=== PATIENT | female | born 1970 | race Caucasian/White ===

== ENCOUNTER 2017-10-05 15:33 | Observation (INO) | payer SELFPAY ==
[2017-10-05] MEDS ORDERED: ASPIRIN 81 MG CHEWABLE TAB PO ONE (15:45)
[2017-10-05] MEDS ORDERED: NS 500 ML IV ONE (15:45)
--- NOTE | 2017-10-05 15:48 | CPEKG ---
Heart Rate: 70 RR Interval: 857 P-R Interval: 148 QRSD Interval: 82 QT Interval: 392 QTC Interval: 423 P Campbell: 77 QRS Campbell: 77 T Wave Campbell: 63 EKG Severity - BORDERLINE ECG - EKG Impression: SINUS RHYTHM EKG Impression: PROBABLE LEFT ATRIAL ABNORMALITY Electronically Signed By: Manjit Downs 05-Oct-2017 22:59:18
[2017-10-05 15:58] LABS: % IMMATURE GRANULYOCYTES 0.1 % (0.0-1.1); ABSOLUTE IMMATURE GRANULOCYTES 0.01 10^3/uL (0.00-0.10); ADD DIFF? NO; ADD MORPH? NO; ADD SCAN? NO; ATYPICAL LYMPHOCYTE FLAG 10 (0-99); FRAGMENT RBC FLAG 0 (0-99); HEMATOCRIT 42.5 % (38.0-47.0); HEMOGLOBIN 14.7 g/dL (12.6-16.3); LEFT SHIFT FLG 0 (0-99); LIPEMIA HEMOLYSIS FLAG 90 (0-99); MEAN CELL HEMOGLOBIN 32.9 pg (27.9-34.1); MEAN CELL HEMOGLOBIN CONCENTR. 34.6 g/dL (32.4-36.7); MEAN CELL VOLUME 95.1 fL (81.5-99.8); MEAN PLATELET VOLUME 9.8 fL (8.7-11.7); PLATELET CLUMPS FLAG 10 (0-99); PLATELET COUNT 266 10^3/uL (150-400); RED BLOOD CELL COUNT 4.47 10^6/uL (4.18-5.33); RED CELL DISTRIBUTION WIDTH 12.3 % (11.5-15.2)
[2017-10-05 16:10] LABS: ANION GAP 11 mEq/L (8-16); CALCIUM 9.1 mg/dL (8.5-10.4); CARBON DIOXIDE 22 mEq/l (22-31); CHLORIDE 107 mEq/L (97-110); CREATININE 0.7 mg/dL (0.6-1.0); GLOMERULAR FILTRATION RATE > 60; GLUCOSE 91 mg/dL (70-100); POTASSIUM 4.2 mEq/L (3.5-5.2); SODIUM 140 mEq/L (134-144)
[2017-10-05 16:15] LABS: INR 0.93 (0.83-1.16); PROTIME(PATIENT) 12.7 SEC (12.0-15.0)
[2017-10-05 16:16] LABS: APTT 26.7 SEC (23.0-38.0)
[2017-10-05 16:22] LABS: CREATINE KINASE-MB FRACTION 0.38 ng/mL (0.00-3.19); TROPONIN I < 0.012 ng/mL (0.000-0.034)
--- NOTE | 2017-10-05 16:44 | EDPHY ---
H & P Time Seen by Provider: 10/05/17 15:44 HPI/ROS: HPI Chest pain, shortness of breath. 47-year-old female by private vehicle. She is here with a friend. She reports she recently moved to this area [facility] travel from [place] initially than [facility] for a few weeks and now here. She reports that last Tuesday she was hiking. While hiking she states that she developed shortness of breath and which she describes as chest pressure and tightness. She reports that since this today she has had shortness of breath and chest discomfort with any exertion and prolonged talking as well. She was seen at her clinic yesterday evening and told that she had an abnormal chest x-ray and to go to the emergency department. She reports she has had some of the symptoms this morning with walking around and getting an out of a car. She denies any significant past medical history. No history of hypertension, diabetes, hyperlipidemia. She does not smoke. Denies any family history of coronary artery disease. Has not had acute mountain sickness in the past was visits to this area. ROS: Constitutional: No fever, no chills. No weakness. Eyes: No discharge. No changes in vision. ENT: No sore throat. No nasal congestion or rhinorrhea. Respiratory: No cough. As above. Cardiac: As above, no palpitations. Gastrointestinal: No abdominal pain, no vomiting, no diarrhea. Genitourinary: No hematuria. No dysuria or increased frequency with urination. Musculoskeletal: No back pain. No neck pain. No myalgias or arthralgias. Skin: No rashes. Neurological: No headache. No focal weakness or altered sensation. Past medical history: Hypothyroid, takes Synthroid. Social history: Nonsmoker. Denies alcohol. Here with herself. Physical Exam: General Appearance: Alert, no distress. This patient is responding to questions appropriately and in full sentences. This patient appears well- hydrated and well-nourished. Eyes: Pupils equal and round no pallor or injection. No lid edema, erythema or injection. ENT, Mouth: Mucous membranes are moist. The pharyngeal tissues are unremarkable. No edema or swelling. No asymmetry suggestive of abscess. No erythema or exudates. Respiratory: There are no retractions, lungs are clear to auscultation with good air movement bilaterally. Cardiovascular: Regular rate and rhythm. No murmur. Gastrointestinal: Abdomen is soft and nontender, no masses, bowel sounds normal. No focal tenderness at McBurney's point. No Hand sign. Neurological: Motor sensory function is grossly intact. Cranial nerves are normal. Gait is normal. Skin: Warm and dry, no rashes. Musculoskeletal: Neck is supple and nontender. Extremities are symmetrical. All joints range without pain or impingement. Psychiatric: No agitation. No depression. Database: EKG: EKG time is 3:46 p.m.; EKG shows a narrow complex normal sinus rhythm with a ventricular rate of 70. The SC, QRS, QT intervals are within normal limits. There are no ST-T wave changes indicative of ischemic or injury pattern. No evidence of right heart strain. Interpreted by me. Imaging: Chest x-ray AP portable; the cardiac mediastinal silhouette is unremarkable. No evidence of infiltrate or pneumothorax. No acute cardiopulmonary disease process noted. Interpreted by me. Procedures: Emergency department course: IV placed. Vital signs reviewed and are normal. She was given 324 mg of chewed aspirin. EKG obtained and reviewed by myself. 4:45 p.m., patient re-evaluated. Resting comfortably at this time. She denies any chest pain or dyspnea. Results of her emergency department workup discussed with her. I advised admission for echocardiogram and serial troponins. She endorses. 5:10 p.m., spoke with hospitalist, Dr. Leland Aguilar, case discussed in detail. He accepts this patient for admission to telemetry observation. Differential Diagnosis: The differential diagnosis on this patient includes but is not limited to acute coronary syndrome, acute mountain sickness, congestive heart failure, pulmonary embolism, pneumonia. This represents a partial list of diagnoses considered. These considerations are based on history, physical exam, past history, reassessment and diagnostic testing. Smoking Status: Never smoked Constitutional: Initial Vital Signs Temperature (C) 37.1 C 10/05/17 15:37 Heart Rate 74 10/05/17 15:37 Respiratory Rate 16 10/05/17 15:37 Blood Pressure 119/81 H 10/05/17 15:37 O2 Sat (%) 97 10/05/17 15:37 O2 Delivery Mode Room Air Allergies/Adverse Reactions: No Known Allergies Allergy (Unverified 10/05/17 15:36) Home Medications: Medication Instructions Recorded Synthroid 10/05/17 Medical Decision Making - Diagnostics Imaging Results: Imaging Impressions Chest X-Ray 10/05/17 15:46 Impression: No acute abnormality. If there is further clinical concern, PA and lateral upright views in the department could be considered. - Data Points Laboratory Results: Laboratory Results 10/05/17 15:46 10/05/17 15:46 10/05/17 10/05/17 10/05/17 15:46 15:46 15:46 WBC 6.84 10^3/uL 10^3/uL (3.80-9.50) RBC 4.47 10^6/uL 10^6/uL (4.18-5.33) Hgb 14.7 g/dL g/dL (12.6-16.3) Hct 42.5 % % (38.0-47.0) MCV 95.1 fL fL (81.5-99.8) MCH 32.9 pg pg (27.9-34.1) MCHC 34.6 g/dL g/dL (32.4-36.7) RDW 12.3 % % (11.5-15.2) Plt Count 266 10^3/uL 10^3/uL (150-400) MPV 9.8 fL fL (8.7-11.7) Neut % (Auto) 50.7 % % (39.3-74.2) Lymph % (Auto) 37.9 % % (15.0-45.0) [place] % (Auto) 6.9 % % (4.5-13.0) Eos % (Auto) 3.1 % % (0.6-7.6) Baso % (Auto) 1.3 % % (0.3-1.7) Nucleat RBC Rel Count 0.0 % % (0.0-0.2) Absolute Neuts (auto) 3.47 10^3/uL 10^3/uL (1.70-6.50) Absolute Lymphs (auto) 2.59 10^3/uL 10^3/uL (1.00-3.00) Absolute Monos (auto) 0.47 10^3/uL 10^3/uL (0.30-0.80) Absolute Eos (auto) 0.21 10^3/uL 10^3/uL (0.03-0.40) Absolute Basos (auto) 0.09 10^3/uL 10^3/uL (0.02-0.10) Absolute Nucleated RBC 0.00 10^3/uL 10^3/uL (0-0.01) Immature Gran % 0.1 % % (0.0-1.1) Immature Gran # 0.01 10^3/uL 10^3/uL (0.00-0.10) PT 12.7 SEC SEC (12.0-15.0) INR 0.93 (0.83-1.16) APTT 26.7 SEC SEC (23.0-38.0) D-Dimer < 0.27 ug/mLFEU ug/mLFEU (0.00-0.50) Sodium 140 mEq/L mEq/L (134-144) Potassium 4.2 mEq/L mEq/L (3.5-5.2) Chloride 107 mEq/L mEq/L (97-110) Carbon Dioxide 22 mEq/l mEq/l (22-31) Anion Gap 11 mEq/L mEq/L (8-16) BUN 13 mg/dL mg/dL (7-23) Creatinine 0.7 mg/dL mg/dL (0.6-1.0) Estimated GFR > 60 Glucose 91 mg/dL mg/dL (70-100) Calcium 9.1 mg/dL mg/dL (8.5-10.4) Creatine Kinase 47 IU/L IU/L (0-156) CK-MB (CK-2) Fraction 0.38 ng/mL ng/mL (0.00-3.19) Troponin I < 0.012 ng/mL ng/mL (0.000-0.034) NT-Pro-B Natriuret Pep 43 pg/mL pg/mL (0-125) Medications Given: Discontinued Medications Aspirin (Aspirin) 324 mg PO EDNOW ONE Stop: 10/05/17 15:46 Last Admin: 10/05/17 16:08 Dose: 324 mg Sodium Chloride (Ns) 500 mls @ 1,000 mls/hr IV EDNOW ONE PRN Reason: Protocol Stop: 10/05/17 16:14 Last Admin: 10/05/17 16:08 Dose: 500 mls Departure - Departure Disposition: [facility] Inpatient Acute Clinical Impression: Chest pain, Dyspnea Referrals: NONE *PRIMARY CARE P,. [Primary Care Provider] - As per Instructions
[2017-10-05] MEDS ORDERED: ONDANSETRON 4 MG/2 ML VIAL IVP PRN (20:31)
[2017-10-05] MEDS ORDERED: ACETAMINOPHEN 325 MG TAB PO PRN (20:31)
[2017-10-05] MEDS ORDERED: ONDANSETRON DISINTEGRATING 4 MG TAB PO PRN (20:31)
[2017-10-05] MEDS ORDERED: IOPAMIDOL (ISOVUE 370) 100 ML BTL IV ONE (20:37)
--- NOTE | 2017-10-05 21:28 | GHP ---
[f rep st] HISTORY AND PHYSICAL DATE OF ADMISSION: 10/05/2017 HISTORY OF PRESENT ILLNESS: The patient is a pleasant 47-year-old female with a minimal past medical history, who presents with a couple of weeks of breathlessness. It sounds like she has had breathle ssness and chest pressure with exertion. She has not had any URI symptoms. She has had some develop ment of pleuritic pain as well. She has traveled extensively throughout the country over the last co uple of months from [place] to [place] to [place] to [place], back to [place] to [place] to [facility], and back to [place]. She has spent time in [place] before. She is fit and active. She said lei segura has had a hard time working out, and she gets winded just walking up the stairs. This is very unus ual for her. She had a hike the other day that she was remarkably winded on. She traveled to [facility] when living in [place] relatively frequently without difficulty. She is staying here in [place], [place]. She does not smoke cigarettes. She does not use IV drugs. She denies fever, c hills, cough, or sputum. Her father had heart disease, but she cannot be more specific. She does not have exertional anginal symptoms, nor does she have heart failure symptoms. She does have a remote history of SVT. She has not had palpitations. REVIEW OF SYSTEMS: A complete 10-point review of systems was conducted and negative except as noted in the HPI. PAST MEDICAL HISTORY: SVT and hypothyroidism. ALLERGIES: No known drug allergies. HOME MEDICATIONS: Fish oil and levothyroxine. SOCIAL HISTORY: She has relocated from [place] to [place]. Originally from [place]. No tobacco . Minimal alcohol. FAMILY HISTORY: Heart disease in her father. PHYSICAL EXAMINATION: PRESENTING VITALS: Temp 37.1, blood pressure 119/81, pulse 74, breathing 16 t imes a minute, 97% on room air. GENERAL: No acute distress. HEENT: Sclerae anicteric. Oropharynx clear. Mucous membranes moist. NECK: Supple, without lymphadenopathy or JVD. LUNGS: Clear to au scultation bilaterally. HEART: S1, S2, without murmurs. ABDOMEN: Soft, nontender, nondistended. LOWER EXTREMITIES: Without edema. Calves are nontender. SKIN: Without rash. NEUROLOGIC: Exam is nonfocal. LABORATORY DATA: White count 6.8, hematocrit 42, platelets 266,000. Coags normal. D-dimer less bar n 0.27. Chem-7 normal. Troponin less than 0.012. BNP 43. TSH 3.9. Chest x-ray interpreted by me shows no acute cardiopulmonary disease. The lower lung edouard appear a little radiopaque, but she al so has breast prostheses. EKG interpreted by me shows sinus at 70, with normal axis and intervals. There is T-wave inversion i n V2 and V3, normalized T-waves in V3. There are no Q-waves. No prior for comparison. She says she has not had inverted T-waves in V1 to V4. ASSESSMENT/PLAN: A 47-year-old female with chest symptoms. 1. Exertional chest pressure. I think the patient is relatively low risk, but given her age and fam anabella history, I will go ahead and start coronary. We will do a stress test in the morning without len ging. 2. Chest pressure with breathlessness. I acknowledged her negative D-dimer. However, I think that it is reasonable to rule out this woman for VTE, especially in light of her recent travel. I have or dered a CT angiogram. 3. Cough with breathlessness. I have ordered some bedside PFTs. DISPOSITION: Observation status. /[id number]/MODL
[2017-10-06 06:30] LABS: CHOLESTEROL 216 mg/dL (140-200); HIGH DENSITY LIPOPROTEIN 90 mg/dL (40-95); LDL/HDL RATIO 1.28 RATIO (1.00-3.22); LOW DENSITY LIPOPROTEIN 115 mg/dL (70-100); NON-HIGH DENSITY LIPOPROTEIN 126 mg/dL (90-129); TRIGLYCERIDE 59 mg/dL (35-135); VERY LOW DENSITY LIPOPROTEINS 11 mg/dL (8-25)
[2017-10-06] MEDS: LEVOTHYROXINE 88 MCG TAB PO SCH (06:40)
[2017-10-06] MEDS ORDERED: Herbals/Supplements -Info Only PO SCH (09:00)
[2017-10-06] MEDS: OMEGA-3 FATTY ACIDS 1,000 MG CAP PO SCH (09:21)
[2017-10-06] MEDS ORDERED: ALBUTEROL 3 ML DEYVIAL ONE (10:57)
--- NOTE | 2017-10-06 11:14 | CPR ---
[f rep st] NONINVASIVE CARDIAC PROCEDURE REPORT DATE OF PROCEDURE: 10/06/2017 PROCEDURE: Exercise treadmill test. INDICATION: The patient is a 47-year-old female who presented to the hospital complaining of shortne ss of breath and chest discomfort. Her symptoms began approximately a week and a half ago after she hiked [place]. 4 hours after her hike, she developed shortness of breath and chest tightness. She did try a friend's inhaler and after the 4th attempt, her discomfort did seem to improve. Sinc e then, she has had intermittent chest tightness and shortness of breath. RISK FACTORS FOR CORONARY ARTERY DISEASE: Include a possible family history. Her father at a y oung age, but the details are unknown. She does know he had heart problems. She denies any history of hypertension, hyperlipidemia, diabetes, or ongoing tobacco use. Consent was obtained. DESCRIPTION OF PROCEDURE: The patient was placed on continuous telemetry. Her resting EKG revealed normal sinus rhythm with a heart rate of 78 beats per minute. TX interval 141, respirations of 73, a nd a QTc of 418. Her resting EKG does not suggest ischemia. The patient exercised on the treadmill for 10 minutes and 50 seconds. She had some shortness of carlota th with initial exertion and then it seemed to improve. She developed upsloping 0.[address] depress ion in the inferior and lateral leads. In the recovery phase, she had diffusely peaked T-waves. Her blood pressure at rest was 126/72 and increased appropriately, peaking at 160/80. Her blood pressur e returned to baseline 5 minutes into recovery. PLAN: Equivocal exercise treadmill test. Given the patient's symptoms and family history of possibl e coronary disease, consider further evaluation with a coronary CT angiogram. /[id number]/MODL
--- NOTE | 2017-10-06 11:19 | PDGENHP ---
History and Physical - Chief Complaint Shortness of breath, Chest discomfort - History of Present Illness The patient is a 47-year-old female who was evaluated in the emergency department for acute shortness of breath and chest discomfort and was admitted to observation. The patient recently moved here from [place]. After travelling to the [facility] she came to [place]. She has been here for 4 weeks and hiked many times without exertional chest discomfort. After hiking recently she developed severe dyspnea. She used an inhaler and her symptoms improved slightly. Nancy has since experienced shortness of breath with 1 flight of stairs and with conversation. She has recently developed URI symptoms including dry cough. She denies lower extremity swelling. Past Medical History: SVT and hypothyroidism. Social History: She has relocated from [place] to [place]. No tobacco use. Works in sales. Family History: Father with heart disease at a young age. History Information - Allergies/Home Medication List Allergies/Adverse Reactions: No Known Allergies Allergy (Unverified 10/05/17 15:36) Home Medications: Herbals/Supplements -Info Only 1 ea PO DAILY 10/05/17 [Last Taken 10/05/17] Levothyroxine [Synthroid 88 mcg (*)] 88 mcg PO DAILY@07 10/05/17 [Last Taken ] [place]-3 Fatty Acids [Fish Oil 1000 mg (*)] 1,000 mg PO DAILY 10/05/17 [Last Taken 10/05/17] I have personally reviewed and updated: family history, medical history, social history, surgical history - Past Medical History SVT Additional medical history: hypothyroidism - Surgical History Reports: no pertinent surgical hx - Family History Additional family history: Father with heart disease and at a young age. - Social History Smoking Status: Never smoked Review of Systems Review of Systems: ROS: 10pt was reviewed & negative except for what was stated in HPI & below Constitutional: Reports: no symptoms EENMT: Reports: no symptoms Cardiac: Reports: chest pain Respiratory: Reports: cough, shortness of breath, wheezing Gastrointestinal: Reports: no symptoms Genitourinary: Reports: no symptoms Muscolosketal: Reports: no symptoms Skin: Reports: no symptoms Neurological: Reports: no symptoms Hematologic/Lymphatic: Reports: no symptoms Physical Exam Physical Exam: Temp Pulse Resp BP Pulse Ox 36.5 C 58 L 12 108/71 94 10/06/17 07:50 10/06/17 07:50 10/06/17 07:50 10/06/17 07:50 10/06/17 07:50 Constitutional: no apparent distress Eyes: PERRL Ears, Nose, Mouth, Throat: moist mucous membranes Cardiovascular: regular rate and rhythym Respiratory: no respiratory distress Gastrointestinal: soft, non-tender abdomen Genitourinary: no bladder fullness Skin: no rashes or abrasions Musculoskeletal: no muscle tenderness Neurologic: AAOx3 Psychiatric: interacting appropriately Lab Data & Imaging Review 10/05/17 15:46 10/05/17 15:46 WBC 6.84 10^3/uL (3.80-9.50) 10/05/17 15:46 RBC 4.47 10^6/uL (4.18-5.33) 10/05/17 15:46 Hgb 14.7 g/dL (12.6-16.3) 10/05/17 15:46 Hct 42.5 % (38.0-47.0) 10/05/17 15:46 MCV 95.1 fL (81.5-99.8) 10/05/17 15:46 MCH 32.9 pg (27.9-34.1) 10/05/17 15:46 MCHC 34.6 g/dL (32.4-36.7) 10/05/17 15:46 RDW 12.3 % (11.5-15.2) 10/05/17 15:46 Plt Count 266 10^3/uL (150-400) 10/05/17 15:46 MPV 9.8 fL (8.7-11.7) 10/05/17 15:46 Neut % (Auto) 50.7 % (39.3-74.2) 10/05/17 15:46 Lymph % (Auto) 37.9 % (15.0-45.0) 10/05/17 15:46 [place] % (Auto) 6.9 % (4.5-13.0) 10/05/17 15:46 Eos % (Auto) 3.1 % (0.6-7.6) 10/05/17 15:46 Baso % (Auto) 1.3 % (0.3-1.7) 10/05/17 15:46 Nucleat RBC Rel Count 0.0 % (0.0-0.2) 10/05/17 15:46 Absolute Neuts (auto) 3.47 10^3/uL (1.70-6.50) 10/05/17 15:46 Absolute Lymphs (auto) 2.59 10^3/uL (1.00-3.00) 10/05/17 15:46 Absolute Monos (auto) 0.47 10^3/uL (0.30-0.80) 10/05/17 15:46 Absolute Eos (auto) 0.21 10^3/uL (0.03-0.40) 10/05/17 15:46 Absolute Basos (auto) 0.09 10^3/uL (0.02-0.10) 10/05/17 15:46 Absolute Nucleated RBC 0.00 10^3/uL (0-0.01) 10/05/17 15:46 Immature Gran % 0.1 % (0.0-1.1) 10/05/17 15:46 Immature Gran # 0.01 10^3/uL (0.00-0.10) 10/05/17 15:46 PT 12.7 SEC (12.0-15.0) 10/05/17 15:46 INR 0.93 (0.83-1.16) 10/05/17 15:46 APTT 26.7 SEC (23.0-38.0) 10/05/17 15:46 D-Dimer < 0.27 ug/mLFEU (0.00-0.50) 10/05/17 15:46 Sodium 140 mEq/L (134-144) 10/05/17 15:46 Potassium 4.2 mEq/L (3.5-5.2) 10/05/17 15:46 Chloride 107 mEq/L (97-110) 10/05/17 15:46 Carbon Dioxide 22 mEq/l (22-31) 10/05/17 15:46 Anion Gap 11 mEq/L (8-16) 10/05/17 15:46 BUN 13 mg/dL (7-23) 10/05/17 15:46 Creatinine 0.7 mg/dL (0.6-1.0) 10/05/17 15:46 Estimated GFR > 60 10/05/17 15:46 Glucose 91 mg/dL (70-100) 10/05/17 15:46 Calcium 9.1 mg/dL (8.5-10.4) 10/05/17 15:46 Creatine Kinase 47 IU/L (0-156) 10/05/17 15:46 CK-MB (CK-2) Fraction 0.38 ng/mL (0.00-3.19) 10/05/17 15:46 Troponin I < 0.012 ng/mL (0.000-0.034) 10/05/17 21:05 NT-Pro-B Natriuret Pep 43 pg/mL (0-125) 10/05/17 15:46 Triglycerides 59 mg/dL (35-135) 10/06/17 05:08 Cholesterol 216 mg/dL (140-200) H 10/06/17 05:08 Cholesterol Risk Factr 0.4 (0.2-1.0) 10/06/17 05:08 LDL Cholesterol, Calc 115 mg/dL (70-100) H 10/06/17 05:08 LDL Risk Factor 0.5 (0.2-1.0) 10/06/17 05:08 VLDL Cholesterol 11 mg/dL (8-25) 10/06/17 05:08 Non-HDL Cholesterol 126 mg/dL (90-129) 10/06/17 05:08 HDL Cholesterol 90 mg/dL (40-95) 10/06/17 05:08 LDL/HDL Ratio 1.28 RATIO (1.00-3.22) 10/06/17 05:08 Cholesterol/HDL Ratio 2.40 RATIO (1.00-4.44) 10/06/17 05:08 TSH 3.940 uIU/mL (0.465-4.680) 10/05/17 15:46 Visualized and Interpreted imaging results: Yes Interpretation: Negative CTA for pulmonary embolus. She did not have evidence of airspace disease. Please see full report. Stress test, no EKG changes with exertion. Visualized and Interpreted EKG results: Yes EKG additional interpertation: Sinus rhythm, nonspecific ST/T abnormalities. Assessment & Plan Assessment: Chest pain (Acute) Dyspnea (Acute) Assessment: Nancy is an active female experiencing breathlessness and occasional chest discomfort. Nancy had a negative CTA for pulmonary embolus. She did not have evidence of airspace disease. She had a Stress test earlier today and states she felt short of breath, but did not experience chest discomfort. Her EKG with exercise is nonspecific but not totally normal. I recommend she have a CT coronary angiogram to make sure there is no proximal obstruction or dissection. If this is normal I recommend the patient follow up with a electrical test engineer. I will have respiratory therapy test peak flow versus a limited pulmonary function test. Plan: CT Coronary angiography is recommended. If negative for coronary obstruction then consider pulmonary consultation.
[2017-10-06] MEDS ORDERED: METOPROLOL TARTRATE 25 MG TAB PO ONE (11:59)
[2017-10-06] MEDS ORDERED: IOPAMIDOL (ISOVUE 370) 100 ML BTL IV ONE (14:24)
--- NOTE | 2017-10-06 15:25 | HOSPPROG ---
Hospitalist Progress Note Assessment/Plan: 47 yo female who recently moved from [place] admitted with ALLISON and chest tightness. Symptoms are worse with exercise. She reports similar sx's when she is exposed to cats and reports wheezing. Today after an exercise test, she reports wheezing. The stress test was equivocal and she is being set up for CT coronary angiogram. Her hx and sx's are more c/w reactive airway disease possibly asthma, unknown trigger Given her hx of SVT, she is very reluctant on starting a trial of bronchodilator #chest pain #ALLISON #?RAD #Hx of SVT #Hypothyroidism Plan: -Await CT coronary angiogram -If normal, will consult pulm per her request -Await PFT's -Dispo: home likely in a.m. given the timing of tests and consultations Subjective: Had some wheezing shortly after stress test. [place] chest tighness. No palpitations, no leg swelling Objective: Vital Signs Temp Pulse Resp BP Pulse Ox 36.9 C 80 20 102/74 97 10/06/17 12:00 10/06/17 13:24 10/06/17 12:00 10/06/17 13:24 10/06/17 12:00 10/05/17 10/06/17 10/07/17 05:59 05:59 05:59 Intake Total 1000 Balance 1000 PT 12.7 SEC (12.0-15.0) 10/05/17 15:46 INR 0.93 (0.83-1.16) 10/05/17 15:46 - Physical Exam Constitutional: no apparent distress, appears nourished Eyes: PERRL Ears, Nose, Mouth, Throat: moist mucous membranes, hearing normal Cardiovascular: regular rate and rhythym, No edema Respiratory: no respiratory distress, no rales or rhonchi, reduced air movement , expiratory wheeze Gastrointestinal: normoactive bowel sounds, soft, non-tender abdomen Skin: warm Musculoskeletal: full muscle strength Neurologic: AAOx3 Psychiatric: interacting appropriately, not anxious, not encephalopathic, thought process linear Lymph, Heme, Immunologic: No petechiae ICD10 Worksheet Patient Problems: Problems Problem Status Onset Chest pain Acute Dyspnea Acute
--- NOTE | 2017-10-06 15:25 | ASMTCASEMG ---
Living Arrangements What is your living Answers: Alone arrangement? Who do you live with? Type Of Residence What kind of residence do Answers: House you live in? Discharge Plan Comments Coordination Status Comments Notes: Pt is a 47 y/o man admitted for chest pain and dyspnea. [facility] came to assess pt. CM spoke w/ HANNAH Gmoez regarding d/c POC. Pt will most likely d/c independent when medically stable. CM to follow. Plan: Independent Date Signed: 10/06/2017 03:24 PM Electronically Signed By:MEAGAN Reveles
[2017-10-06] MEDS ORDERED: POLYETHYLENE GLYCOL 3350 17 GM PKT PO PRN (19:14)
[2017-10-06] MEDS ORDERED: BISACODYL 10 MG SUPP PR PRN (19:14)
[2017-10-06] MEDS ORDERED: MAGNESIUM HYDROXIDE 30 ML UDCUP PO PRN (19:14)
[2017-10-06] MEDS ORDERED: LACTULOSE 20 GM/30 ML UDCUP PO PRN (19:14)
[2017-10-06] MEDS: SENNOSIDES/DOCUSATE SODIUM TAB PO SCH (20:06)
[2017-10-07] MEDS: LEVOTHYROXINE 88 MCG TAB PO SCH (06:36)
[2017-10-07 08:53] VITALS: RESP 18
[2017-10-07] MEDS: SENNOSIDES/DOCUSATE SODIUM TAB PO SCH (09:37)
[2017-10-07] MEDS: OMEGA-3 FATTY ACIDS 1,000 MG CAP PO SCH (09:38)
[2017-10-07 12:20] VITALS: BP 123/71; PULSE 60; TEMP 97.9; O2SAT 97
--- NOTE | 2017-10-07 13:29 | GCON ---
[f rep st] CONSULTATION CHEST CONSULTATION. REASON FOR ADMISSION: Chest pressure and breathlessness. HISTORY OF PRESENT ILLNESS: The patient is a very pleasant, 47-year-old, white female with a past me dical history of hypothyroidism and SVT. Six weeks ago she moved to [place] from [place] and shortly thereafter she began becoming more breathless. This was associated with some chest tightness. This had worsened in severity and she sought medical attention and was eventually admitted to the hospital .. An extensive workup has ensued. In discussion with the patient, she states that she has no jasiel chest pain, but does admit to some chest pressure predominately in the middle of her chest which is w orse with any form of exertion. She admits to a cough that is nonproductive. There is no fever or n ight sweats. PAST MEDICAL HISTORY: Significant for SVT, hypothyroidism. PAST SURGICAL HISTORY: None. ALLERGIES: None. MEDICATIONS: Levothyroxine, omega-3 and herbal supplements. SOCIAL HISTORY: No history of tobacco use. Infrequent alcohol use. She works in sales. She is sing le with 3 children. Again, she recently moved to [place] from [place]. FAMILY HISTORY: Noncontributory. REVIEW OF SYSTEM: A 10-point review of systems was performed and was negative except for what was se en in HPI. PHYSICAL EXAM: VITAL SIGNS: Blood pressure is 98/65, pulse 64, respiration 18, temperature 36.6, ox ygen saturation 96% on room air. GENERAL: She is a well-developed, well-nourished, 47-year-old, whi te female who is resting comfortably in no acute distress HEENT: Eyes are PERRLA, EOMI. Throat show s no erythema or tonsillar hypertrophy. NECK: Supple. There is no cervical adenopathy. HEART: Re gular rate and rhythm without murmurs, rubs, or gallops. LUNGS: A mild prolongation of expiratory p hase but no wheeze. ABDOMEN: Soft, nontender. Bowel sounds are present in all 4 quadrants. EXTREM ITIES: No clubbing, cyanosis, or edema. LABORATORIES: White count 6.8, hemoglobin 14, hematocrit 42, platelet count 266. Sodium 140, potass ium 4.2, chloride 107, CO2 is 22, BUN 13, creatinine 0.7, glucose is 91. CT angiogram of the chest wa s negative for PE, otherwise clear. Chest x-ray dated 10/05/2017 is clear. Bedside spirometry shows obstructive physiology as well as small airways obstruction, this is improved post bronchodilator the rapy. IMPRESSION: Asthma. This would be consistent with her symptoms of breathlessness and chest pressure as well as wheeze. RECOMMENDATIONS: 1. Will start patient on Breo Ellipta 100/25. She is instructed to use 1 puff per day. 2. Will start patient on Xopenex inhaler. She is instructed to use this 2 puffs every 6 hours as nee ded. 3. She will follow up with my office in approximately 1 month at which time complete pulmonary funct ion testing will be ordered. /[id number]/MODL
--- NOTE | 2017-10-07 13:57 | PDDCSUM ---
Discharge Summary Discharge Summary: 47 yo female who recently moved from [place] admitted with ALLISON and chest tightness. Symptoms are worse with exercise. She reports similar sx's when she is exposed to cats and reports wheezing. Yesterday after an exercise test, she reports wheezing. The stress test was equivocal and she had CT coronary angiogram which was unremarkable Her hx and sx's are more c/w reactive airway disease possibly asthma, unknown trigger Given her hx of SVT, she is very reluctant on starting a trial of bronchodilator She had consultation by Dr. Mancilla who has diagnosed asthma and started Breo Elipta and Xopenex She is on RA and ready for discharge #chest pain #ALLISON #RAD/Asthma #Hx of SVT #Hypothyroidism Exam: NAD AAOX3 RRR PROLONGED EXP PHASE, NO WHEEZING S/NT/ND NO LE EDEMA MEDS: SEE MED REC F/U: WILL F/U WITH DR. MANCILLA TOTAL TIME SPENT ON DISCHARGE IS 35 MINS
--- NOTE | 2017-10-07 14:10 | ASMTCMCOM ---
CM Note CM Note Notes: Medically cleared for dc. No needs identified. Cm, available if needs arise. Date Signed: 10/07/2017 02:10 PM Electronically Signed By:Meagan King RN
--- NOTE | 2017-10-07 18:02 | ASDISCHSUM ---
Discharge Information Plan Status:Home with No Needs Medically Cleared to Leave: Discharge Date:10/07/2017 04:20 PM CM D/C Disposition:Home, Routine, Self-Care ADT D/C Disposition:Home, Routine, Self-Care Projected Discharge Date:10/07/2017 04:20 PM Transportation at D/C: Discharge Delay Reason: Follow-Up Date:10/07/2017 04:20 PM Discharge Slot: Final Diagnosis: Placement Information Patient Contact Information Contact Name:[place] Relationship:Friend Address: Work Phone: City: [facility] Phone: State/Zip Code: Email: Financial Information Financial Class:Self-Pay Primary Plan Desc:SELF PAY Primary Plan Number: Secondary Plan Desc: Secondary Plan Number: Assessment Information LACE LACE Acuity / Level of Care Answers: Was the patient admitted to hospital via the emergency department? Yes: Emergency dept visits in Answers: 1 last 6 months Score: 4 Date Signed: 10/05/2017 05:19 PM Electronically Signed By:Carmen Wagner RN [facility] Initial CM Assessment Living Arrangements What is your living Answers: Alone arrangement? Who do you live with? Type Of Residence What kind of residence do Answers: House you live in? Discharge Plan Comments Coordination Status Comments Notes: Pt is a 47 y/o man admitted for chest pain and dyspnea. [facility] came to assess pt. CM spoke w/ HANNAH Gomez regarding d/c POC. Pt will most likely d/c independent when medically stable. CM to follow. Plan: Independent Date Signed: 10/06/2017 03:24 PM Electronically Signed By:MEAGAN Reveles [facility] CM Progress Note CM Note CM Note Notes: Medically cleared for dc. No needs identified. Cm, available if needs arise. Date Signed: 10/07/2017 02:10 PM Electronically Signed By:Meagan King RN Intervention Information
== END 2017-10-07 16:20 | disposition home or self-care (01) ==
LOC: EDBD 15:33 → F2W 18:07
PROVIDERS: ADMIT Internal Medicine; ATTEND Family Medicine
DX: R07.9 Chest pain, unspecified (principal); R06.09 Other forms of dyspnea; J45.909 Unspecified asthma, uncomplicated; R94.39 Abnormal result of other cardiovascular function study; E03.9 Hypothyroidism, unspecified; Z86.79 Personal history of other diseases of the circulatory system; Z82.49 Family history of ischemic heart disease and other diseases of the circulatory system
CPT/HCPCS: G0378; Q9967